=== PATIENT | male | born 1955 | race Caucasian/White ===

== ENCOUNTER → 2021-04-15 | Outpatient (CLI) | payer OTHER ==
[~2021-04-15] MED LIST: AMBIEN 10 MG TA10 MG PO; AZITHROMYCIN 2250 MG PO; FLONASE16 GM NS
== END ==
LOC: RAD 09:33
PROVIDERS: ATTEND Internal Medicine
DX: R06.00 Dyspnea, unspecified (principal)

== ENCOUNTER → 2021-05-13 | Outpatient (CLI) | payer OTHER | LOC: CAT 09:39 | PROVIDERS: ATTEND Internal Medicine | DX: J84.10 Pulmonary fibrosis, unspecified (principal); J98.11 Atelectasis; K76.9 Liver disease, unspecified; N28.1 Cyst of kidney, acquired; I51.7 Cardiomegaly; Z86.2 Personal history of diseases of the blood and blood-forming organs and certain disorders involving the immune mechanism ==